=== PATIENT | male | born 1955 | race African-American/Black ===

== ENCOUNTER 2018-03-29 01:33 | Emergency (ER) | payer MEDICAID, OTHER ==
[~2018-03-29] VITALS: Ht 185.4 cm; Wt 95.4 kg
[2018-03-29 02:17] VITALS: BP 180/105
[2018-03-29 03:17] LABS: CHLORIDE 107 mEq/L (98-107)
[2018-03-29 03:19] LABS: PARTIAL THROMBOPLASTIN TIME 24.5 sec (23.4-31.0); PROTHROMBIN TIME 10.1 sec (9.4-11.6)
[2018-03-29 03:24] LABS: BASOPHILS % 1.1 % (0.0-2.0); EOSINOPHILS % 1.1 % (0.0-5.0); HEMATOCRIT. 41.9 % (42.0-52.0); HEMOGLOBIN. 14.1 g/dL (14.0-18.0); LYMPHOCYTES % 16.9 % (20.0-50.0); MEAN CORPUSCULAR HEMOGLOBIN 29.3 pg (28.0-32.0); MEAN CORPUSCULAR VOLUME 87.2 fL (80.0-94.0); MONOCYTES % 7.5 % (2.0-8.0); NEUTROPHILS % 73.4 % (40.0-76.0); RED BLOOD CELL COUNT 4.81 mill/uL (4.7-6.1); RED CELL DISTRIBUTION WIDTH 13.8 % (11.6-14.6)
[2018-03-29 04:05] LABS: PLATELET ESTIMATE NORMAL
[2018-03-29] MEDS ORDERED: IOHEXOL-300 100 ML BOTTLE ONE (06:47)
== END 2018-03-29 05:47 | disposition home or self-care (01) ==
LOC: ER 01:33
DX: R10.9 Unspecified abdominal pain (principal); R51 Headache; Y93.89 Activity, other specified; V43.62XA Car passenger injured in collision with other type car in traffic accident, initial encounter; Y92.488 Other paved roadways as the place of occurrence of the external cause; E11.9 Type 2 diabetes mellitus without complications; I10 Essential (primary) hypertension; N20.0 Calculus of kidney
CPT/HCPCS: 36415; 70450; 71045; 71260; 72125; 72170; 74177; 80053; 83690; 85025; 85610; 85730; 86850; 86900; 86901; 93005; 99285; Q9967; Z7610